=== PATIENT | male | born 1975 | race Caucasian/White ===

== ENCOUNTER 2017-04-12 16:49 | Emergency (ER) | payer BC ==
[2017-04-12 16:57] VITALS: BP 130/76
--- NOTE | 2017-04-12 17:27 | UC ---
Ear Complaint HPI - HPI Summary HPI Summary: Patient presents with complaints of plugged ears, with history of cerumen impaction, and often times requires ear irrigation. He presents today with those complaints. He denies any fever, chills, ear canal drainage. He does report decreased hearing - History of Current Complaint Chief Complaint: UCEar Stated Complaint: EARS CLOGGED Time Seen by Provider: 04/12/17 17:12 Hx Obtained From: Patient Onset/Duration: Gradual Onset, Lasting Days Severity Initially: Mild Severity Currently: Mild Aggravating Factors: Nothing Alleviating Factors: Nothing Associated Signs/Symptoms: Positive: Hearing Loss - Allergies/Home Medications Allergies/Adverse Reactions: Allergies Allergy/AdvReac Type Severity Reaction Status Date / Time Cefaclor [From Ceclor] Allergy Intermediate Hives Verified 04/12/17 16:57 Penicillins Allergy Intermediate Hives Verified 04/12/17 16:57 Sulfa Antibiotics Allergy Intermediate Hives Verified 04/12/17 16:57 Sulfamethoxazole Allergy Intermediate Hives Verified 04/12/17 16:57 w/Trimethoprim [From Bactrim] Home Medications: Home Medications Miles-3 Fatty Acids [Fish Oil 1200 mg] 1 cap PO DAILY 04/12/17 [History Confirmed 04/12/17] PMH/Surg Hx/FS Hx/Imm Hx Previously Healthy: Yes - Surgical History Surgical History: Yes Surgery Procedure, Year, and Place: Middle finger left hand surgery. colonoscopy. wisdom teeeth removed,pre cancerous mole removal - Family History Known Family History: Positive: None, Renal Disease Negative: Cardiac Disease, Hypertension Family History: NON CONTRIBUTORY - Social History Occupation: Employed Full-time Lives: Alone Alcohol Use: Occasionally Substance Use Type: None Smoking Status (MU): Never Smoked Tobacco Review of Systems Constitutional: Negative Skin: Negative Eyes: Negative ENT: Negative Respiratory: Negative Cardiovascular: Negative Gastrointestinal: Negative Genitourinary: Negative Motor: Negative Neurovascular: Negative Musculoskeletal: Negative Neurological: Negative Psychological: Negative All Other Systems Reviewed And Are Negative: Yes Physical Exam Triage Information Reviewed: Yes Vital Signs: Initial Vital Signs Temp 97.6 F 04/12/17 16:52 Pulse 60 04/12/17 16:52 Resp 20 04/12/17 16:52 BP 130/76 04/12/17 16:52 Pulse Ox 100 04/12/17 16:52 Eye Exam: Normal ENT Exam: Other - bilateral cerumen noted in canals. Dental Exam: Normal Neck exam: Normal Neck: Positive: 1 Respiratory Exam: Normal Cardiovascular Exam: Normal Abdominal Exam: Normal Musculoskeletal Exam: Normal Skin Exam: Normal Ear Complaint Course/Dx - Course Course Of Treatment: Patient presents with history of cerumen impaction. The ears were irrigated without incidence and the patient discharge in stable conditiosn. - Differential Dx/Diagnosis Differential Diagnosis/HQI/PQRI: Cerumen Impaction Provider Diagnoses: cerumen impaction Discharge - Discharge Plan Condition: Stable Disposition: HOME Patient Education Materials: Cerumen Impaction (ED) Referrals: Chente Medina MD [Primary Care Provider] -
== END 2017-04-12 17:37 | disposition home or self-care (01) ==
LOC: UCEAST 16:49
DX: H61.20 Impacted cerumen, unspecified ear (principal); Z88.0 Allergy status to penicillin; Z88.2 Allergy status to sulfonamides
CPT/HCPCS: 99213; G0463

== ENCOUNTER 2017-04-22 21:52 | Emergency (ER) | payer BC ==
--- NOTE | 2017-04-22 21:56 | UC ---
Skin Complaint HPI - HPI Summary HPI Summary: 42 year old male presents with right external hemorrhoid at 3 pm. - History of Current Complaint Time Seen by Provider: 04/22/17 21:55 Stated Complaint: LUMP IN RECTUM Hx Obtained From: Patient Onset/Duration: Sudden Onset Onset Severity: Moderate Current Severity: Moderate Pain Scale Used: 0-10 Numeric - 0 - Allergy/Home Medications Allergies/Adverse Reactions: Allergies Allergy/AdvReac Type Severity Reaction Status Date / Time Cefaclor [From Ceclor] Allergy Intermediate Hives Verified 04/22/17 21:58 Penicillins Allergy Intermediate Hives Verified 04/22/17 21:58 Sulfa Antibiotics Allergy Intermediate Hives Verified 04/22/17 21:58 Sulfamethoxazole Allergy Intermediate Hives Verified 04/22/17 21:58 w/Trimethoprim [From Bactrim] Review of Systems Constitutional: Negative Skin: Negative Eyes: Negative ENT: Negative Respiratory: Negative Cardiovascular: Negative Gastrointestinal: Other - right external hemorrhoid Genitourinary: Negative Motor: Negative Neurovascular: Negative Musculoskeletal: Negative Neurological: Negative Psychological: Negative All Other Systems Reviewed And Are Negative: Yes PMH/Surg Hx/FS Hx/Imm Hx Previously Healthy: Yes - Surgical History Surgical History: Yes Surgery Procedure, Year, and Place: Middle finger left hand surgery. colonoscopy. wisdom teeeth removed,pre cancerous mole removal - Family History Known Family History: Positive: None, Renal Disease Negative: Cardiac Disease, Hypertension Family History: NON CONTRIBUTORY - Social History Alcohol Use: Occasionally Substance Use Type: None Smoking Status (MU): Never Smoked Tobacco Physical Exam Triage Information Reviewed: Yes Vital Signs Reviewed: Yes Eye Exam: Normal ENT Exam: Normal Dental Exam: Normal Neck exam: Normal Neck: Positive: 1 Respiratory Exam: Normal Cardiovascular Exam: Normal Abdomen Description: Positive: Other: - right external hemorrhoid at 3 pm Musculoskeletal Exam: Normal Neurological Exam: Normal Psychological Exam: Normal Skin Exam: Normal Course/Dx - Diagnoses Provider Diagnoses: external hemorrhoid Discharge - Discharge Plan Condition: Stable Disposition: HOME Prescriptions: Hydrocortisone Acetate W/ Pram [Analpram Hc 2.5-1 %] 1 cre MI TID PRN #1 tube PRN Reason: Pain Hydrocortisone SUPP* [Anusol HC Supp*] 25 mg MI TID PRN #12 supp PRN Reason: Pain Patient Education Materials: Hemorrhoids (ED) Referrals: Mateusz Nugent MD [Medical Doctor] - Chente Medina MD [Primary Care Provider] -
[2017-04-22 21:58] VITALS: BP 132/79
== END 2017-04-22 22:24 | disposition home or self-care (01) ==
LOC: UCEAST 21:52
DX: K64.4 Residual hemorrhoidal skin tags (principal); Z88.1 Allergy status to other antibiotic agents; Z88.0 Allergy status to penicillin; Z88.2 Allergy status to sulfonamides
CPT/HCPCS: 99212; G0463

== ENCOUNTER 2017-08-29 19:14 | Emergency (ER) | payer BC ==
--- NOTE | 2017-08-29 19:19 | UC ---
Throat Pain/Nasal Nhan HPI - HPI Summary HPI Summary: Pt presents with sinus pain/pressure/congestion for the last 3 weeks. He tells me that he has chronic sinusitis and is followed by ENT for this. He was seen by ENT for this same issue 1 week ago and was told that it could be viral and he should give it more time to see if his symptoms improve. He says that have not improved. Denies fever, chills, SOB, chest pain, abdominal pain, n/v/d/c. - History of Current Complaint Stated Complaint: SINUS CONGESTION Time Seen by Provider: 08/29/17 19:19 Hx Obtained From: Patient Onset/Duration: Gradual Onset Severity: Mild Pain Intensity: 3 Pain Scale Used: 0-10 Numeric - Allergies/Home Medications Allergies/Adverse Reactions: Allergies Allergy/AdvReac Type Severity Reaction Status Date / Time cefaclor [From Ceclor] Allergy Severe Hives Verified 08/29/17 19:24 Penicillins Allergy Severe Hives Verified 08/29/17 19:24 Sulfa (Sulfonamide Allergy Severe Hives Verified 08/29/17 19:24 Antibiotics) sulfamethoxazole Allergy Severe Hives Verified 08/29/17 19:24 [From Bactrim] trimethoprim [From Bactrim] Allergy Severe Hives Verified 08/29/17 19:24 Home Medications: Home Medications [place] 08/29/17 [History] Quercitin* 08/29/17 [History] PMH/Surg Hx/FS Hx/Imm Hx - Additional Past Medical History Additional PMH: Chronic sinusitis Cardiovascular History: Hypertension - Surgical History Surgical History: Yes Surgery Procedure, Year, and Place: Middle finger left hand surgery. colonoscopy. wisdom teeeth removed,pre cancerous mole removal - Family History Known Family History: Positive: None, Renal Disease Negative: Cardiac Disease, Hypertension - Social History Occupation: Employed Full-time Lives: With Family Alcohol Use: Occasionally Substance Use Type: None Smoking Status (MU): Never Smoked Tobacco Review of Systems Constitutional: Negative Skin: Negative Eyes: Negative ENT: Sinus Congestion, Sinus Pain/Tenderness Respiratory: Negative Cardiovascular: Negative All Other Systems Reviewed And Are Negative: Yes Physical Exam Triage Information Reviewed: Yes Appearance: Well-Appearing, No Pain Distress, Well-Nourished Eyes: Positive: Conjunctiva Clear. Negative: Conjunctiva Inflamed, Discharge ENT: Positive: Hearing grossly normal, Pharynx normal, Nasal congestion, TMs normal, Sinus tenderness, Uvula midline. Negative: Pharyngeal erythema, Nasal drainage, TM bulging, TM dull, TM red, Tonsillar swelling, Tonsillar exudate, Hoarse voice Neck: Positive: Supple, Nontender, No Lymphadenopathy Respiratory: Positive: Lungs clear, Normal breath sounds, No respiratory distress, No accessory muscle use Cardiovascular: Positive: RRR, No Murmur, Pulses Normal Neurological: Positive: Alert Psychological: Positive: Age Appropriate Behavior Skin: Negative: rashes Throat Pain/Nasal Course/Dx - Course Course Of Treatment: Sinusitis - Zpak. Advised to schedule f/u with ENT for 1-2 weeks for further eval of his chronic sinusitis - Differential Dx/Diagnosis Provider Diagnoses: Sinusitis Discharge - Discharge Plan Condition: Stable Disposition: HOME Prescriptions: Azithromycin TAB* [Zithromax TAB (Z-SEVERO) 250 mg #6 tabs] 2 tab PO .TODAY, THEN 1 DAILY #1 severo Patient Education Materials: Sinusitis (ED) Referrals: Chente Medina MD [Primary Care Provider] - Additional Instructions: If you develop a fever, shortness of breath, chest pain, new or worsening symptoms - please call your PCP or go to the ED. Your blood pressure was high at todays visit. Please see your primary provider within 4 weeks for recheck and re-evaluation. 1) Please schedule a follow up appointment with ENT for further evaluation and treatment of your chronic sinusitis.
[2017-08-29 19:22] VITALS: BP 141/91
== END 2017-08-29 19:40 | disposition home or self-care (01) ==
LOC: UCEAST 19:14
DX: J32.9 Chronic sinusitis, unspecified (principal); I10 Essential (primary) hypertension; Z88.1 Allergy status to other antibiotic agents; Z88.0 Allergy status to penicillin; Z88.2 Allergy status to sulfonamides
CPT/HCPCS: 99212; G0463

== ENCOUNTER 2018-04-01 11:28 | Emergency (ER) | payer BC ==
[2018-04-01 12:29] VITALS: BP 130/86
--- NOTE | 2018-04-01 12:32 | UC ---
Complaint Male HPI - HPI Summary HPI Summary: 43 yo male presents with groin pain and blood-tinged semen. He noticed this once 5 days ago while masturbating and again 2 days ago. The amount of semen is able a teaspoon or tablespoon and has tinges of dark red blood. He tells me that he has had this in the past and was dx'd with prostatitis. He also has polycystic kidney dz and has annual ultrasounds - had one about a month ago and was told he had a ?cyst around his prostate. He made an appt with Urology and is seeing them the end of this month for follow up. He also has some mild groin discomfort that he describes as an ache. He has had intercourse with a female twice in the last 3 weeks, but he wore a condom both times. He has not noticed any blood in his urine nor does he have pain with urination. Denies fever, chills, SOB, chest pain, abdominal pain, n/v/d/c, dysuria, hematuria, testicular pain/trauma. - History of Current Complaint Chief Complaint: UCGU Stated Complaint: PERSONAL Time Seen by Provider: 04/01/18 12:32 Hx Obtained From: Patient Onset/Duration: Sudden Onset Severity Currently: None Pain Intensity: 0 - Allergies/Home Medications Allergies/Adverse Reactions: Allergies Allergy/AdvReac Type Severity Reaction Status Date / Time cefaclor [From Ceclor] Allergy Severe Hives Verified 04/01/18 12:18 Penicillins Allergy Severe Hives Verified 04/01/18 12:18 Sulfa (Sulfonamide Allergy Severe Hives Verified 04/01/18 12:18 Antibiotics) sulfamethoxazole Allergy Severe Hives Verified 04/01/18 12:18 [From Bactrim] trimethoprim [From Bactrim] Allergy Severe Hives Verified 04/01/18 12:18 Home Medications: Home Medications Fluocinonide 0.05% CM (NF) [Lidex 0.05% CREAM (NF)] 0.05 04/01/18 [History] Hydrocortisone 2.5% CREAM(NF) 04/01/18 [History] Montelukast Sodium 10 mg PO BEDTIME 04/01/18 [History Confirmed 04/01/18] Triamcinolone 0.1% CREAM (NF) [Kenalog 0.1% Cream (NF)] 1 applic DAILY 04/01/18 [History Confirmed 04/01/18] PMH/Surg Hx/FS Hx/Imm Hx - Additional Past Medical History Additional PMH: Eczema Cardiovascular History: Hypertension Respiratory History: Asthma - Surgical History Surgical History: Yes Surgery Procedure, Year, and Place: Middle finger left hand surgery. colonoscopy. wisdom teeth removed,. pre cancerous mole removal - Family History Known Family History: Positive: Renal Disease Negative: Cardiac Disease, Hypertension - Social History Occupation: Employed Full-time Lives: With Family Alcohol Use: Occasionally Substance Use Type: None Smoking Status (MU): Never Smoked Tobacco Review of Systems Constitutional: Negative Skin: Negative Respiratory: Negative Cardiovascular: Negative Gastrointestinal: Negative Genitourinary: Other - Blood in semen Neurological: Negative Psychological: Negative All Other Systems Reviewed And Are Negative: Yes Physical Exam - Summary Physical Exam Summary: GENERAL: NAD. WDWN. No pain distress. SKIN: No rashes, sores, lesions, or open wounds. NECK: Supple. Nontender. No lymphadenopathy. CHEST: CTAB. No r/r/w. No accessory muscle use. Breathing comfortably and in no distress. CV: RRR. Without m/r/g. Pulses intact. Cap refill <2seconds ABDOMEN: Soft. NTTP. No distention or guarding. No CVA tenderness. Bowel sounds present NEURO: Alert. PSYCH: Age appropriate behavior. Triage Information Reviewed: Yes Vital Signs: Initial Vital Signs Temp 97.8 F 04/01/18 12:24 Pulse 71 04/01/18 12:24 Resp 20 04/01/18 12:24 BP 130/86 04/01/18 12:24 Pulse Ox 100 04/01/18 12:24 Laboratory Tests 04/01/18 12:43 POC Urine Color Yellow POC Urine Clarity Clear POC Urine pH 7.0 POC Ur Specif [place] 1.010 POC Urine Protein Negative POC Ur Glucose (UA) Negative POC Urine Ketones Negative POC Urine Blood Negative POC Urine Nitrite Negative POC Urine Bilirubin Negative POC Urine Urobilinogen 0.2 POC U Leukocyte Esteras Negative Vital Signs Reviewed: Yes Male Genital Exam: Positive: Other - No inguinal LAD. Prostate mildly enlarged without tenderness. Right testicle with 1mm hard nodule around 1 o'clock NTTP. No enlargement. Left testicle WNL and NTTP. No stool in vault or hemorrhoid appreciated.. Negative: No Hernia, Bleeding, Epididymal Tenderness, Inguinal Tenderness, Lesions, Scrotum Tenderness (R), Scrotum Tenderness (L), Testicular Tenderness (R), Testicular Tenderness (L), Urethral Discharge Complaint Male Course/Dx - Course Course Of Treatment: Suspect prostatitis vs underlying prostate pathology. Discussed obtaining a testicular ultrasound today to evaluate the right testicle nodule - he has never noticed this in the past - but he said that he was "aready running behind schedule" today and did not have time. I will send his urine for GC/C and treat him with Cipro for prostatitis. Strongly encouraged to call Urology and see if they can see him sooner than later this month. - Differential Dx/Diagnosis Provider Diagnoses: Prostatitis. Right testicle nodule. hematospermia Discharge - Sign-Out/Discharge Documenting (check all that apply): Patient Departure All imaging exams completed and their final reports reviewed: No Studies - Discharge Plan Condition: Stable Disposition: HOME Prescriptions: Ciprofloxacin TAB* [Cipro 500 MG TAB*] 500 mg PO BID #28 tab Patient Education Materials: Prostatitis (ED) Referrals: Chente Medina MD [Primary Care Provider] - Additional Instructions: If you develop a fever, shortness of breath, chest pain, new or worsening symptoms - please call your PCP or go to the ED. Your blood pressure was mildly elevated at todays visit. Please see your primary provider within 4 weeks for recheck and re-evaluation. 1) Please keep your follow up with Urology - Billing Disposition and Condition Condition: STABLE Disposition: Home
== END 2018-04-01 13:36 | disposition home or self-care (01) ==
LOC: UCEAST 11:28
DX: N41.9 Inflammatory disease of prostate, unspecified (principal); N50.9 Disorder of male genital organs, unspecified; R36.1 Hematospermia; I10 Essential (primary) hypertension; J45.909 Unspecified asthma, uncomplicated; Z88.1 Allergy status to other antibiotic agents; Z88.0 Allergy status to penicillin; Z88.2 Allergy status to sulfonamides
CPT/HCPCS: 81003; 87491; 87591; 99212; G0463

== ENCOUNTER 2018-05-17 19:51 | Emergency (ER) | payer BC ==
[2018-05-17 20:00] VITALS: BP 148/99
--- NOTE | 2018-05-17 20:14 | UC ---
Ear Complaint HPI - HPI Summary HPI Summary: left ear decrease hearing and pain - History of Current Complaint Chief Complaint: UCEar Stated Complaint: EAR PAIN Time Seen by Provider: 05/17/18 20:07 Hx Obtained From: Patient Onset/Duration: Gradual Onset Pain Intensity: 3 Pain Scale Used: 0-10 Numeric Aggravating Factors: Nothing Alleviating Factors: Nothing Associated Signs/Symptoms: Positive: Hearing Loss - Allergies/Home Medications Allergies/Adverse Reactions: Allergies Allergy/AdvReac Type Severity Reaction Status Date / Time cefaclor [From Ceclor] Allergy Severe Hives Verified 05/17/18 20:00 Penicillins Allergy Severe Hives Verified 05/17/18 20:00 Sulfa (Sulfonamide Allergy Severe Hives Verified 05/17/18 20:00 Antibiotics) sulfamethoxazole Allergy Severe Hives Verified 05/17/18 20:00 [From Bactrim] trimethoprim [From Bactrim] Allergy Severe Hives Verified 05/17/18 20:00 Home Medications: Home Medications Acetaminophen [Acetaminophen Extra Strength] 500 mg PO PRN 05/17/18 [History] PMH/Surg Hx/FS Hx/Imm Hx Previously Healthy: No Cardiovascular History: Hypertension - Surgical History Surgical History: Yes Surgery Procedure, Year, and Place: Middle finger left hand surgery. colonoscopy. wisdom teeth removed,. pre cancerous mole removal - Family History Known Family History: Positive: None, Renal Disease Negative: Cardiac Disease, Hypertension Family History: NON CONTRIBUTORY - Social History Occupation: Employed Full-time Lives: With Family Alcohol Use: Occasionally Substance Use Type: None Smoking Status (MU): Never Smoked Tobacco Review of Systems All Other Systems Reviewed And Are Negative: Yes Constitutional: Positive: Negative Skin: Positive: Negative Eyes: Positive: Negative ENT: Positive: Negative Respiratory: Positive: Negative Cardiovascular: Positive: Negative Gastrointestinal: Positive: Negative Genitourinary: Positive: Negative Motor: Positive: Negative Neurovascular: Positive: Negative Musculoskeletal: Positive: Negative Neurological: Positive: Negative Psychological: Positive: Negative Physical Exam Triage Information Reviewed: Yes Appearance: Well-Appearing, No Pain Distress, Well-Nourished Vital Signs: Initial Vital Signs Temp 96.7 F 05/17/18 19:56 Pulse 71 05/17/18 19:56 Resp 16 05/17/18 19:56 BP 148/99 05/17/18 19:56 Pulse Ox 100 05/17/18 19:56 Vital Signs Reviewed: Yes Eye Exam: Normal Eyes: Positive: Conjunctiva Clear ENT Exam: Normal ENT: Positive: Normal ENT inspection, Hearing grossly normal, Pharynx normal, Uvula midline, Other - bilateral cerumin impaction. Negative: Tonsillar swelling, Tonsillar exudate, Trismus, Muffled voice, Hoarse voice, Dental tenderness, Sinus tenderness Dental Exam: Normal Neck exam: Normal Neck: Positive: Supple, Nontender Respiratory Exam: Normal Respiratory: Positive: Chest non-tender, No respiratory distress, No accessory muscle use Cardiovascular Exam: Normal Cardiovascular: Positive: RRR, Pulses Normal, Brisk Capillary Refill Musculoskeletal Exam: Normal Musculoskeletal: Positive: Strength Intact, ROM Intact, No Edema Neurological Exam: Normal Neurological: Positive: Alert, Muscle Tone Normal Psychological Exam: Normal Skin Exam: Normal Re-Evaluation - Re-Evaluation First Eval Change: Improved - ears flushed--patient reports relief of discomfort increased hearing --tm appear wnl Ear Complaint Course/Dx - Course Course Of Treatment: follow blood pressure with pcp re-check prn - Differential Dx/Diagnosis Differential Diagnosis/HQI/PQRI: Foreign Body Provider Diagnoses: hypertension in poor control, resolved bilateral cerumen impaction Discharge - Sign-Out/Discharge Documenting (check all that apply): Patient Departure All imaging exams completed and their final reports reviewed: No Studies - Discharge Plan Condition: Stable Disposition: HOME Patient Education Materials: Cerumen Impaction (ED), Hypertension (ED) Referrals: Chente Medina MD [Primary Care Provider] - 1 Week - Billing Disposition and Condition Condition: STABLE Disposition: Home
== END 2018-05-17 21:00 | disposition home or self-care (01) ==
LOC: UCEAST 19:51
DX: I10 Essential (primary) hypertension (principal); H92.02 Otalgia, left ear; Z88.1 Allergy status to other antibiotic agents; Z88.0 Allergy status to penicillin; Z88.2 Allergy status to sulfonamides
CPT/HCPCS: 99213; G0463

== ENCOUNTER 2018-08-01 17:18 | Emergency (ER) | payer BC ==
[2018-08-01 17:35] VITALS: BP 136/78
--- NOTE | 2018-08-01 17:37 | UC ---
Nausea/Vomiting/Diarrhea HPI - HPI Summary HPI Summary: 43 y/o male presents to the urgent care c/o watery diarrhea since yesterday morning. Pt states he has about 8 episodes of diarrhea yesterday and about 7 today. Pt states abdominal cramping pain 4/10 alleviated w/ BM. Pt has been drinking Gatorade and fluids and eating soft meals. Today he decided to take Peptobismol PO to alleviate symptoms. Pt denies fever, URI, SANTOS, dizziness, SOB, chest pain, N/V. - History of Current Complaint Chief Complaint: UCGI Stated Complaint: STOMACH BUG Time Seen by Provider: 08/01/18 17:36 Hx Obtained From: Patient Onset/Duration: Gradual Onset Timing: Intermittent Episodes Lasting: Severity Initially: Mild Pain Intensity: 4 - crampin gabdominal pain Pain Scale Used: 0-10 Numeric Location: Diffuse Character: Cramping Aggravating Factor(s): Food Alleviating Factor(s): Bowel Movement Nausea/Vomiting Presence: None Diarrhea Presence: Yes Diarrhea Frequency: Every 3-4 hours Diarrhea Duration: 12-24 hours Diarrhea Characteristics: Watery - Risk Factors Influenza Risk Factors: Negative Surgical Obstruction Risk Factor(s): Negative - Allergies/Home Medications Allergies/Adverse Reactions: Allergies Allergy/AdvReac Type Severity Reaction Status Date / Time cefaclor [From Ceclor] Allergy Severe Hives Verified 08/01/18 17:36 Penicillins Allergy Severe Hives Verified 08/01/18 17:36 Sulfa (Sulfonamide Allergy Severe Hives Verified 08/01/18 17:36 Antibiotics) sulfamethoxazole Allergy Severe Hives Verified 08/01/18 17:36 [From Bactrim] trimethoprim [From Bactrim] Allergy Severe Hives Verified 08/01/18 17:36 Home Medications: Home Medications Bismuth Subsalicylate [Pepto-Bismol] 60 ml PO Q1HR PRN 08/01/18 [History Confirmed 08/01/18] PMH/Surg Hx/FS Hx/Imm Hx Previously Healthy: Yes Cardiovascular History: Hypertension Other GI/ History: PKD - Surgical History Surgical History: Yes Surgery Procedure, Year, and Place: Middle finger left hand surgery;. colonoscopy-NO POLYPS;. wisdom teeth removed;. pre cancerous mole removal; - Family History Known Family History: Positive: None, Renal Disease Negative: Cardiac Disease, Hypertension Family History: NON CONTRIBUTORY - Social History Occupation: Employed Full-time Lives: With Family Alcohol Use: Occasionally Substance Use Type: None Smoking Status (MU): Never Smoked Tobacco Review of Systems All Other Systems Reviewed And Are Negative: Yes Constitutional: Positive: Negative Skin: Positive: Negative Eyes: Positive: Negative ENT: Positive: Negative Respiratory: Positive: Negative Cardiovascular: Positive: Negative Gastrointestinal: Positive: Abdominal Pain, Diarrhea Genitourinary: Positive: Negative Motor: Positive: Negative Neurovascular: Positive: Negative Musculoskeletal: Positive: Negative Neurological: Positive: Negative Psychological: Positive: Negative Is Patient Immunocompromised?: No Physical Exam - Summary Physical Exam Summary: Vital Signs Reviewed: Yes General:Patient is a well developed and nourished male who is sitting comfortable in the examining table. Patient is not in any acute respiratory distress. Eyes: Positive: Conjunctiva Clear - PERRLA, EOMI, fundi grossly normal ENT: Positive: Normal ENT inspection, Hearing grossly normal, Pharynx normal, TMs normal Neck: Positive: Supple, Nontender, No Lymphadenopathy Respiratory: Positive: Chest non-tender, Lungs clear, Normal breath sounds, No respiratory distress Cardiovascular: Positive: RRR,S1 and S2 present, No Murmur, Pulses Normal, Brisk Capillary Refill Abdomen Description: Positive: Nontender, Abd: Flat with no distention. No surface trauma, scars, incisions. hyperactive bowel sounds present in all four quadrants. No tenderness, guarding, rigidity to palpation. No masses palpated, no pulsation in epigastric area. No organomegaly. Negative [place] signs. No periumbilical tenderness. No rebound in the lower quadrants. NT over [place] point. Good femoral pulses bilaterally. No hernia noted. No CVAT bilaterally Musculoskeletal: Positive: Strength Intact, ROM Intact, No Edema,FROM in all major joints, no edema, no cyanosis or clubbing. Neuro: Alert and oriented x 3. No acute neurological deficits. Speech is normal. Psychological: WNL Skin: Dry and warm Triage Information Reviewed: Yes Vital Signs: Initial Vital Signs Temp 99 F 08/01/18 17:29 Pulse 82 08/01/18 17:29 Resp 16 08/01/18 17:29 BP 136/78 08/01/18 17:29 Pulse Ox 98 08/01/18 17:29 Naus/Vom/Diarrhea Course/Dx - Course Course Of Treatment: 43 y/o male presents to the urgent care c/o watery diarrhea since yesterday morning. Pt states he has about 8 episodes of diarrhea yesterday and about 7 today. Pt states abdominal cramping pain 4/10 alleviated w/ BM. Pt has been drinking Gatorade and fluids and eating soft meals. Today he decided to take Peptobismol PO to alleviate symptoms. Pt denies fever, URI, SANTOS, dizziness, SOB, chest pain, N/V. Hx obtained. PE:WNL. Pt is hemodynamically stable. Pt unable to collect stool for testing at the clinic. Pt advised to bring back the stool, educated in how to do it. Stool culture ordered, O&P, Lactoferrin. E.Coli also ordered. Pt will be notify of the results for further treatment. Pt Rx ImodiumPO and Metronidazole PO only to take if diarrhea worsens. Advised to increase fluid intake, eat soft meals, and rest. If Symptoms worsen to go immediately to the ER for further management. Otherwise f /u with PCP if not complete resolution of symptoms for further management. Pt understood and agreed with plan of care. Left the clinic ambulating, hemodynamically stable, A&Ox3 - Differential Dx/Diagnosis Differential Diagnoses - Male: Appendicitis, Diverticulitis, Gastroenteritis ( Viral), Gastroenteritis (Bacterial), Diarrhea, Colitis, Dehydration Provider Diagnosis: Acute diarrhea Condition At Discharge: Stable Discharge - Sign-Out/Discharge Documenting (check all that apply): Patient Departure - d/c home All imaging exams completed and their final reports reviewed: No Studies - Discharge Plan Condition: Stable Disposition: HOME Prescriptions: Loperamide CAP* [Imodium CAP*] 2 mg PO Q4H PRN #12 cap PRN Reason: Diarrhea metroNIDAZOLE TAB* [Flagyl 250 mg TAB*] 250 mg PO TID #21 tab Patient Education Materials: Acute Diarrhea (ED) Forms: *Work Release Referrals: Chente Medina MD [Primary Care Provider] - 3 Days Additional Instructions: 1- Please increase fluid intake. Please continue taking Gatorade or Pedialyte OTC , eat soft meals, avoid strenuous exercise, and rest. 2-Please bring Stool sample as soon as is collected to send it to the lab for further evaluation 3- Please start taking Imodium PO and Metronidazole PO as directed only if diarrhea continues to be severe. 4- If you develop fever or abdominal pain w/ recurrent episodes of diarrhea please go to the ER, otherwise f/u with your PCP if diarrhea not resolving in 3 days - Billing Disposition and Condition Condition: STABLE Disposition: Home
--- NOTE | 2018-08-04 19:30 | UC ---
- Progress Note Progress Note: E. Coli 0157H7 neg shiga neg C dif neg neg giardia/crypto neg rotavirus + staph: prelim no change in treatment - await final 08/04/18 Course/Dx - Diagnoses Provider Diagnoses: Acute diarrhea Discharge - Sign-Out/Discharge Documenting (check all that apply): Post-Discharge Follow Up All imaging exams completed and their final reports reviewed: No Studies - Discharge Plan Condition: Stable Disposition: HOME Prescriptions: Loperamide CAP* [Imodium CAP*] 2 mg PO Q4H PRN #12 cap PRN Reason: Diarrhea metroNIDAZOLE TAB* [Flagyl 250 mg TAB*] 250 mg PO TID #21 tab Patient Education Materials: Acute Diarrhea (ED) Forms: *Work Release Referrals: Chente Medina MD [Primary Care Provider] - 3 Days Additional Instructions: 1- Please increase fluid intake. Please continue taking Gatorade or Pedialyte OTC , eat soft meals, avoid strenuous exercise, and rest. 2-Please bring Stool sample as soon as is collected to send it to the lab for further evaluation 3- Please start taking Imodium PO and Metronidazole PO as directed only if diarrhea continues to be severe. 4- If you develop fever or abdominal pain w/ recurrent episodes of diarrhea please go to the ER, otherwise f/u with your PCP if diarrhea not resolving in 3 days - Billing Disposition and Condition Condition: STABLE Disposition: Home
== END 2018-08-01 18:50 | disposition home or self-care (01) ==
LOC: UCEAST 17:18
DX: R19.7 Diarrhea, unspecified (principal); Z88.1 Allergy status to other antibiotic agents; Z88.0 Allergy status to penicillin; Z88.2 Allergy status to sulfonamides
CPT/HCPCS: 99212; G0463

== ENCOUNTER 2018-08-20 17:26 | Emergency (ER) | payer BC ==
[2018-08-20 17:37] VITALS: BP 121/77
[2018-08-20 18:04] LABS: Influenza A Molecular POSITIVE (Negative)
--- NOTE | 2018-08-20 18:47 | UC ---
FLU HPI - HPI Summary HPI Summary: Pt presents with c/o sudden onset of fever, chills, body aches and generalized malaise, X 2 days. - History of Current Complaint Chief Complaint: UCRespiratory Stated Complaint: COUGH, CHILLS, AND SORE THROAT Time Seen by Provider: 08/20/18 17:33 Hx Obtained From: Patient Onset/Duration: Sudden Onset, Lasting Days, Still Present Severity Currently: Moderate Severity Initially: Moderate Pain Intensity: 0 Pain Scale Used: 0-10 Numeric Associated Signs & Symptoms: Positive: Fever, Myalgia, Nasal Congestion Related Hx: Possible Flu/Infectious Exposure - Risk Factors Influenza Risk Factors: Negative - Allergy/Home Medications Allergies/Adverse Reactions: Allergies Allergy/AdvReac Type Severity Reaction Status Date / Time cefaclor [From Ceclor] Allergy Severe Hives Verified 08/20/18 17:38 Penicillins Allergy Severe Hives Verified 08/20/18 17:38 Sulfa (Sulfonamide Allergy Severe Hives Verified 08/20/18 17:38 Antibiotics) sulfamethoxazole Allergy Severe Hives Verified 08/20/18 17:38 [From Bactrim] trimethoprim [From Bactrim] Allergy Severe Hives Verified 08/20/18 17:38 PMH/Surg Hx/FS Hx/Imm Hx Previously Healthy: Yes - Surgical History Surgical History: Yes Surgery Procedure, Year, and Place: Middle finger left hand surgery;. colonoscopy-NO POLYPS;. wisdom teeth removed;. pre cancerous mole removal; - Family History Known Family History: Positive: None, Renal Disease Negative: Cardiac Disease, Hypertension Family History: NON CONTRIBUTORY - Social History Occupation: Employed Full-time Lives: Alone Alcohol Use: Occasionally Substance Use Type: None Smoking Status (MU): Never Smoked Tobacco Have You Smoked in the Last Year: No Review of Systems All Other Systems Reviewed And Are Negative: Yes Constitutional: Positive: Fever, Chills, Fatigue Skin: Positive: Negative Eyes: Positive: Negative ENT: Positive: Sinus Congestion Respiratory: Positive: Cough Cardiovascular: Positive: Negative, Palpitations Genitourinary: Positive: Negative Motor: Positive: Negative Neurovascular: Positive: Negative Musculoskeletal: Positive: Myalgia Neurological: Positive: Negative Psychological: Positive: Negative Is Patient Immunocompromised?: No Physical Exam Triage Information Reviewed: Yes Appearance: Ill-Appearing Vital Signs: Initial Vital Signs Temp 98.9 F 08/20/18 17:31 Pulse 70 08/20/18 17:31 Resp 16 08/20/18 17:31 BP 121/77 08/20/18 17:31 Pulse Ox 99 08/20/18 17:31 Vital Signs Reviewed: Yes Eye Exam: Normal ENT: Positive: Nasal congestion Dental Exam: Normal Neck exam: Normal Respiratory Exam: Normal Respiratory: Positive: Normal breath sounds Cardiovascular Exam: Normal Musculoskeletal Exam: Normal Neurological Exam: Normal Psychological Exam: Normal Skin Exam: Normal Flu Course/Dx - Differential Dx/Diagnosis Differential Diagnosis/HQI/PQRI: Bronchitis, Influenza Provider Diagnosis: Influenza A Discharge - Sign-Out/Discharge Documenting (check all that apply): Patient Departure All imaging exams completed and their final reports reviewed: No Studies - Discharge Plan Condition: Stable Disposition: HOME Prescriptions: Oseltamivir CAP* [Tamiflu CAP*] 75 mg PO Q12H #10 cap Patient Education Materials: Influenza (ED) Forms: *Work Release Referrals: Chente Medina MD [Primary Care Provider] - If Needed - Billing Disposition and Condition Condition: STABLE Disposition: Home
== END 2018-08-20 18:30 | disposition home or self-care (01) ==
LOC: UCEAST 17:26
DX: J10.1 Influenza due to other identified influenza virus with other respiratory manifestations (principal); Z88.2 Allergy status to sulfonamides; Z88.0 Allergy status to penicillin; Z88.1 Allergy status to other antibiotic agents
CPT/HCPCS: 99212; G0463

== ENCOUNTER 2018-10-02 10:03 | Emergency (ER) | payer BC ==
--- NOTE | 2018-10-02 10:10 | UC ---
Skin Complaint HPI - HPI Summary HPI Summary: 43 yo male presents with RIGHT big toe complaint. He tells me that 1 week ago he got a pedicure and the tech was "digging out" an ingrown toenail on his big toe. The next day on the medial aspect of the big toe nail-skin fold he began to have pain, swelling, and mild clear/yellow drainage. He has been applying triple antibiotic ointment and a band-aid daily since that time and it has improved, but he is still having some pain with walking. Denies fever, chills, streaking redness. - History of Current Complaint Time Seen by Provider: 10/02/18 10:08 Stated Complaint: SORE ON TOE Hx Obtained From: Patient Onset/Duration: Sudden Onset Onset Severity: Moderate Current Severity: Mild Pain Intensity: 5 Pain Scale Used: 0-10 Numeric - Allergy/Home Medications Allergies/Adverse Reactions: Allergies Allergy/AdvReac Type Severity Reaction Status Date / Time cefaclor [From Ceclor] Allergy Severe Hives Verified 10/02/18 10:14 Penicillins Allergy Severe Hives Verified 10/02/18 10:14 Sulfa (Sulfonamide Allergy Severe Hives Verified 10/02/18 10:14 Antibiotics) sulfamethoxazole Allergy Severe Hives Verified 10/02/18 10:14 [From Bactrim] trimethoprim [From Bactrim] Allergy Severe Hives Verified 10/02/18 10:14 PMH/Surg Hx/FS Hx/Imm Hx Cardiovascular History: Hypertension Respiratory History: Asthma - Surgical History Surgical History: Yes Surgery Procedure, Year, and Place: Middle finger left hand surgery;. colonoscopy-NO POLYPS;. wisdom teeth removed;. pre cancerous mole removal; - Family History Known Family History: Positive: Renal Disease Negative: Cardiac Disease, Hypertension - Social History Occupation: Employed Full-time Lives: With Family Alcohol Use: Occasionally Substance Use Type: None Smoking Status (MU): Never Smoked Tobacco Have You Smoked in the Last Year: No Review of Systems All Other Systems Reviewed And Are Negative: Yes Constitutional: Positive: Negative Skin: Positive: Other - Right big toe redness/pain Respiratory: Positive: Negative Cardiovascular: Positive: Negative Musculoskeletal: Positive: Negative Neurological: Positive: Negative Psychological: Positive: Negative Physical Exam - Summary Physical Exam Summary: GENERAL: NAD. WDWN. No pain distress. SKIN: RIGHT BIG TOE: Medial aspect of nail-skin fold with mild erythema and scant clear drainage. No edema, warmth, streaking, or fluctuant area appreciated. NECK: Supple. Nontender. No lymphadenopathy. CHEST: No accessory muscle use. Breathing comfortably and in no distress. CV: Pulses intact. Cap refill <2seconds NEURO: Alert. PSYCH: Age appropriate behavior. Triage Information Reviewed: Yes Vital Signs: Vital Signs: Temp Pulse Resp BP Pulse Ox 98.3 F 64 18 140/86 100 10/02/18 10:10/02/18 10:10/02/18 10:10/02/18 10:10/02/18 10:09 Vital Signs Reviewed: Yes Course/Dx - Course Course Of Treatment: Paronychia - appears to be healing well. Advised to continue triple anbx and band-aid until well healed. - Diagnoses Provider Diagnosis: Paronychia Discharge - Sign-Out/Discharge Documenting (check all that apply): Patient Departure All imaging exams completed and their final reports reviewed: No Studies - Discharge Plan Condition: Stable Disposition: HOME Patient Education Materials: Paronychia (ED) Referrals: Chente Medina MD [Primary Care Provider] - Additional Instructions: If you develop a fever, shortness of breath, chest pain, new or worsening symptoms - please call your PCP or go to the ED. 1) Keep applying triple antibiotic ointment and changing the dressing (band-aid ) daily until well healed - Billing Disposition and Condition Condition: STABLE Disposition: Home
[2018-10-02 10:14] VITALS: BP 140/86
[2018-10-02] MEDS: Tetan/Diph/Pertus SYR(Tdap)* 0.5 ML SYR(BOOSTRIX) use SYR IM ONE (10:33)
== END 2018-10-02 10:50 | disposition home or self-care (01) ==
LOC: UCEAST 10:03
DX: L03.031 Cellulitis of right toe (principal); Z88.0 Allergy status to penicillin; Z88.1 Allergy status to other antibiotic agents; Z88.2 Allergy status to sulfonamides; I10 Essential (primary) hypertension
CPT/HCPCS: 90471; 90715; 99211; G0010; G0463

== ENCOUNTER 2018-10-09 16:32 | Emergency (ER) | payer BC ==
[2018-10-09 16:51] VITALS: BP 124/71
--- NOTE | 2018-10-09 17:17 | UC ---
Lower Extremity/Ankle HPI - HPI Summary HPI Summary: 43 y/o male presents to the urgent care c/o C/O RIGHT GREAT TOE WOUND THAT PT WAS SEEN HERE FOR LAST WEEK. PT RETURNS TODAY BECAUSE WOUND IS STILL PAINFUL AND DRAINING. - History of Current Complaint Chief Complaint: UCWounds Stated Complaint: R BIG TOE COMPLAINT Time Seen by Provider: 10/09/18 17:11 Hx Obtained From: Patient Pain Intensity: 3 - Allergies/Home Medications Allergies/Adverse Reactions: Allergies Allergy/AdvReac Type Severity Reaction Status Date / Time cefaclor [From Ceclor] Allergy Severe Hives Verified 10/09/18 16:51 Penicillins Allergy Severe Hives Verified 10/09/18 16:51 Sulfa (Sulfonamide Allergy Severe Hives Verified 10/09/18 16:51 Antibiotics) sulfamethoxazole Allergy Severe Hives Verified 10/09/18 16:51 [From Bactrim] trimethoprim [From Bactrim] Allergy Severe Hives Verified 10/09/18 16:51 PMH/Surg Hx/FS Hx/Imm Hx - Surgical History Surgical History: Yes Surgery Procedure, Year, and Place: Middle finger left hand surgery;. colonoscopy-NO POLYPS;. wisdom teeth removed;. pre cancerous mole removal; - Family History Known Family History: Positive: Renal Disease Negative: Cardiac Disease, Hypertension - Social History Alcohol Use: None Substance Use Type: None Smoking Status (MU): Never Smoked Tobacco Have You Smoked in the Last Year: No Physical Exam Vital Signs: Initial Vital Signs Temp 97.2 F 10/09/18 16:48 Pulse 55 10/09/18 16:48 Resp 16 10/09/18 16:48 BP 124/71 10/09/18 16:48 Pulse Ox 100 10/09/18 16:48 Lower Extremity Course/Dx - Differential Dx/Diagnosis Provider Diagnosis: Paronychia of great toe, right Discharge - Sign-Out/Discharge Documenting (check all that apply): Patient Departure - D/C home All imaging exams completed and their final reports reviewed: No Studies - Discharge Plan Condition: Stable Disposition: HOME Prescriptions: Aluminum Sulf/Ca Acetate SEVERO* [[place] SEVERO*] 1 applic TOPICAL DAILY #1 severo Bacitracin OINTMENT* 1 applic TOPICAL TID #1 tube Clindamycin Cap(NF) [Clindamycin Cap 300 mg Cap(NF)] 300 mg PO TID #21 cap Patient Education Materials: Paronychia (ED) Referrals: [facility] [Outside] - 3 Days Bahman Arnold DPM [Doctor of Podiatric Medicine] - 3 Days Additional Instructions: 1-Please take full course of antibiotic to avoid resistance. Keep wound clean and dry with a sterile dressing. Apply bacitracin topical as directed 2- F/u wound check up in 2 days with your PCP or Podiarist Dr Arnold at the urgent care for removal of packing 3-. Take Ibuprofen PO q6-8hrs prn for pain or swelling. soak your toe in the [place] pkts and dey toe well and apply bacitrain ointment as directed. 4-If you develop fever or redness despite antibiotic please go to the ER immediately or return to the Urgent care. 5- Wound culture sent to lab, if any abnormal result you will receive a call from us. - Billing Disposition and Condition Condition: STABLE Disposition: Home
[2018-10-09] MEDS ORDERED: Lidocaine 1%* 5 ML VIAL INJ ONE (17:30)
[2018-10-09] MEDS ORDERED: Silver Nitrate/Potassium Nitr* 1 EA STICK TOPICAL ONE (17:30)
--- NOTE | 2018-10-12 15:11 | UC ---
- Progress Note Progress Note: Wound culture result presumed resistant to clindamycin, but pt was placed on bacitracin and on wound check 2 days later appeared to be healing well. Please forward culture results to his Industrial Safety And Health Technician. Please call pt and insure he has f/u with Industrial Safety And Health Technician and if symptoms are improving - continue clindamycin....if symptoms not improving - will change po anbx. Course/Dx - Diagnoses Provider Diagnoses: Paronychia of great toe, right Discharge - Sign-Out/Discharge Documenting (check all that apply): Post-Discharge Follow Up All imaging exams completed and their final reports reviewed: No Studies - Discharge Plan Condition: Stable Disposition: HOME Prescriptions: Aluminum Sulf/Ca Acetate SEVERO* [[place] SEVERO*] 1 applic TOPICAL DAILY #1 severo Bacitracin OINTMENT* 1 applic TOPICAL TID #1 tube Clindamycin Cap(NF) [Clindamycin Cap 300 mg Cap(NF)] 300 mg PO TID #21 cap Patient Education Materials: Paronychia (ED) Forms: *Work Release Referrals: [facility] [Outside] - 3 Days Bahman Arnold DPM [Doctor of Podiatric Medicine] - 3 Days Additional Instructions: 1-Please take full course of antibiotic to avoid resistance. Keep wound clean and dry with a sterile dressing. Apply bacitracin topical as directed 2- F/u wound check up in 2 days with your PCP or Podiarist Dr Arnold at the urgent care for removal of packing 3-. Take Ibuprofen PO q6-8hrs prn for pain or swelling. soak your toe in the domeboro pkts and dey toe well and apply bacitrain ointment as directed. 4-If you develop fever or redness despite antibiotic please go to the ER immediately or return to the Urgent care. 5- Wound culture sent to lab, if any abnormal result you will receive a call from us. - Billing Disposition and Condition Condition: STABLE Disposition: Home - Attestation Statements Provider Attestation: I reviewed the culture and sensitivity report , he is on clindamycin and as per report,there is still a possibility that the organism is sensitive to clindamycin , he is seeing his regional dedicated truck driver tomorrow for follow-up . I agree with plan -Mendy Mckeon MD
== END 2018-10-09 19:20 | disposition home or self-care (01) ==
LOC: UCEAST 16:32
DX: L03.031 Cellulitis of right toe (principal); B95.61 Methicillin susceptible Staphylococcus aureus infection as the cause of diseases classified elsewhere; Z16.29 Resistance to other single specified antibiotic; Z88.1 Allergy status to other antibiotic agents; Z88.0 Allergy status to penicillin; Z88.2 Allergy status to sulfonamides
CPT/HCPCS: 87070; 87077; 87186; 87205; 87640; 87641; 99213; A9270-GY; G0463

== ENCOUNTER 2018-10-11 20:00 | Emergency (ER) | payer BC ==
[2018-10-11 20:20] VITALS: BP 131/79
--- NOTE | 2018-10-11 20:31 | UC ---
HPI Wound/Suture Re-check - HPI Summary HPI Summary: i7d of a paronychia right great toe 2 days ago---here for re-check - History Of Current Complaint Chief Complaint: UCSkin Stated Complaint: TOE PAIN Time Seen by Provider: 10/11/18 20:19 Hx Obtained From: Patient Onset/Duration: Sudden Onset Pain Intensity: 1 Pain Scale Used: 0-10 Numeric Procedure Type: i&d of paronychia right great toe Surgery Date: 10/09/18 - Allergies/Home Medications Allergies/Adverse Reactions: Allergies Allergy/AdvReac Type Severity Reaction Status Date / Time cefaclor [From Ceclor] Allergy Severe Hives Verified 10/11/18 20:20 Penicillins Allergy Severe Hives Verified 10/11/18 20:20 Sulfa (Sulfonamide Allergy Severe Hives Verified 10/11/18 20:20 Antibiotics) sulfamethoxazole Allergy Severe Hives Verified 10/11/18 20:20 [From Bactrim] trimethoprim [From Bactrim] Allergy Severe Hives Verified 10/11/18 20:20 PMH/Surg Hx/FS Hx/Imm Hx Previously Healthy: No Cardiovascular History: Hypertension Respiratory History: Asthma - Surgical History Surgical History: Yes Surgery Procedure, Year, and Place: Middle finger left hand surgery;. colonoscopy-NO POLYPS;. wisdom teeth removed;. pre cancerous mole removal; - Family History Known Family History: Positive: Renal Disease Negative: Cardiac Disease, Hypertension - Social History Occupation: Employed Full-time Lives: Alone Alcohol Use: None Substance Use Type: None Smoking Status (MU): Never Smoked Tobacco Have You Smoked in the Last Year: No Review of Systems All Other Systems Reviewed And Are Negative: Yes Constitutional: Positive: Negative Skin: Positive: Negative Eyes: Positive: Negative ENT: Positive: Negative Respiratory: Positive: Negative Cardiovascular: Positive: Negative Gastrointestinal: Positive: Negative Genitourinary: Positive: Negative Motor: Positive: Negative Neurovascular: Positive: Negative Musculoskeletal: Positive: Negative Neurological: Positive: Negative Psychological: Positive: Negative Is Patient Immunocompromised?: No Physical Exam Triage Information Reviewed: Yes Appearance: Well-Appearing, No Pain Distress, Well-Nourished Vital Signs: Initial Vital Signs Temp 98.7 F 10/11/18 20:14 Pulse 78 10/11/18 20:14 Resp 20 10/11/18 20:14 BP 131/79 10/11/18 20:14 Pulse Ox 100 10/11/18 20:14 Vital Signs Reviewed: Yes Eye Exam: Normal Eyes: Positive: Conjunctiva Clear ENT Exam: Normal ENT: Positive: Normal ENT inspection, Hearing grossly normal, Pharynx normal. Negative: Trismus, Muffled voice, Hoarse voice Dental Exam: Normal Neck exam: Normal Neck: Positive: Supple, Nontender Respiratory Exam: Normal Respiratory: Positive: Chest non-tender, No respiratory distress, No accessory muscle use Cardiovascular Exam: Normal Cardiovascular: Positive: RRR, Pulses Normal, Brisk Capillary Refill Musculoskeletal Exam: Normal Musculoskeletal: Positive: Strength Intact, ROM Intact, No Edema Neurological Exam: Normal Neurological: Positive: Alert, Muscle Tone Normal Psychological Exam: Normal Skin: Positive: Other - no drainage , erythama right great toe Course/Dx - Course Course Of Treatment: warm water and soap soaks continue antibiotics follow with podiatry as planned - Diagnosis Provider Diagnosis: Paronychia of great toe of right foot, Healing wound Discharge - Sign-Out/Discharge Documenting (check all that apply): Patient Departure All imaging exams completed and their final reports reviewed: No Studies - Discharge Plan Condition: Stable Disposition: HOME Patient Education Materials: Paronychia (ED), Warm Compress or Soak (ED) Forms: *Work Release Referrals: No Primary Care Phys,NOPCP [Primary Care Provider] - Bahman Arnold DPM [Doctor of Podiatric Medicine] - (as planned) - Billing Disposition and Condition Condition: STABLE Disposition: Home
== END 2018-10-11 20:40 | disposition home or self-care (01) ==
LOC: UCEAST 20:00
DX: L03.031 Cellulitis of right toe (principal); I10 Essential (primary) hypertension; J45.909 Unspecified asthma, uncomplicated; Z88.0 Allergy status to penicillin; Z88.2 Allergy status to sulfonamides; Z88.1 Allergy status to other antibiotic agents
CPT/HCPCS: 99212; G0463

== ENCOUNTER 2019-03-03 17:44 | Emergency (ER) | payer BC ==
[2019-03-03 18:05] VITALS: BP 144/92
--- NOTE | 2019-03-03 18:20 | UC ---
Cardiac HPI - HPI Summary HPI Summary: 43-year-old male presents with complaints of one week history of intermittent episodes of feeling as if his heart is fluttering. States he has been having episodes every day that last for a few seconds and then stop. Reports having multiple episodes a day. States today had some dizziness. States he had a similar incident in 2008 or 2009 that was worked up including a stress test and Holter monitor which he states were negative. States this workup was done in [facility] and he does not remember who the physician was at the time. Reports he has been told he has a murmur in the past. Denies chest pain, shortness of breath, diaphoresis, nausea, or vomiting. - History of Current Complaint Chief Complaint: UCChestPain Stated Complaint: CHEST PAIN FLUTTER Time Seen by Provider: 03/03/19 17:47 Hx Obtained From: Patient Pain Intensity: 0 - Allergy/Home Medications Allergies/Adverse Reactions: Allergies Allergy/AdvReac Type Severity Reaction Status Date / Time cefaclor [From Ceclor] Allergy Severe Hives Verified 03/03/19 19:24 Penicillins Allergy Severe Hives Verified 03/03/19 19:24 Sulfa (Sulfonamide Allergy Severe Hives Verified 03/03/19 19:24 Antibiotics) sulfamethoxazole Allergy Severe Hives Verified 03/03/19 19:24 [From Bactrim] trimethoprim [From Bactrim] Allergy Severe Hives Verified 03/03/19 19:24 PMH/Surg Hx/FS Hx/Imm Hx Cardiovascular History: Hypertension Psychological History: Anxiety - Surgical History Surgical History: Yes Surgery Procedure, Year, and Place: Middle finger left hand surgery;. colonoscopy-NO POLYPS;. wisdom teeth removed;. pre cancerous mole removal; - Family History Known Family History: Positive: Hypertension - Mother, Renal Disease Negative: Cardiac Disease - Social History Occupation: Employed Full-time Lives: Alone Alcohol Use: None Substance Use Type: None Smoking Status (MU): Never Smoked Tobacco Have You Smoked in the Last Year: No Review of Systems All Other Systems Reviewed And Are Negative: Yes Constitutional: Negative: Fever, Chills Respiratory: Negative: Shortness Of Breath, Cough Cardiovascular: Positive: Palpitations. Negative: Chest Pain Gastrointestinal: Negative: Abdominal Pain, Vomiting, Nausea Genitourinary: Positive: Negative Musculoskeletal: Positive: Negative Neurological: Positive: Negative Is Patient Immunocompromised?: No Physical Exam - Summary Physical Exam Summary: GENERAL APPEARANCE: Well developed, well nourished, alert and cooperative, and appears to be in no acute distress. CARDIAC: Normal S1 and S2. No S3, S4 or murmurs. Rhythm is regular. There is no peripheral edema, cyanosis or pallor. Extremities are warm and well perfused. Capillary refill is less than 2 seconds. Peripheral pulses intact. LUNGS: Clear to auscultation without rales, rhonchi, wheezing or diminished breath sounds. ABDOMEN: Positive bowel sounds. Soft, nondistended, nontender. No guarding or rebound. No masses or hepatosplenomegally. MUSKULOSKELETAL: ROM intact to all extremities. No joint erythema or tenderness. Normal muscular development. Normal gait. SKIN: Skin normal color, texture and turgor with no lesions or eruptions. Triage Information Reviewed: Yes Vital Signs: Initial Vital Signs Temp 99.1 F 03/03/19 18:02 Pulse 71 03/03/19 18:02 Resp 18 03/03/19 18:02 BP 144/92 03/03/19 18:02 Pulse Ox 100 03/03/19 18:02 Vital Signs Reviewed: Yes Diagnostics - EKG Cardiac Rate: NL - Rate 65 Cardiac Rhythm: Sinus: Normal Ectopy: None ST Segment: Normal Summary of EKG Findings: NSR. Rate 65. No BERTRAND or ectopy. P-wave and T-wave inversion V1 likely normal variant. No previous EKG for comparison. - Assessment/Plan Course Of Treatment: 43-year-old male presents with complaints of one week history of intermittent episodes of feeling as if his heart is fluttering. States he has been having episodes every day that last for a few seconds and then stop. Reports having multiple episodes a day. States today had some dizziness. States he had a similar incident in 2008 or 2009 that was worked up including a stress test and Holter monitor which he states were negative. States this workup was done in [facility] and he does not remember who the physician was at the time. Reports he has been told he has a murmur in the past. Denies chest pain, shortness of breath, diaphoresis, nausea, or vomiting. Afebrile. Hypertensive otherwise vital signs stable. Twelve-lead EKG showed normal sinus rhythm at a rate of [address] elevation. There was P wave and T-wave inversion in V1 likely a normal variant however there was no previous EKG for comparison. Patient's exam was overall unremarkable. Discussed findings with the patient and have recommended that he be further evaluated in the emergency room at this time. Patient is agreeable to this plan however declines transport via EMS electing to go by private vehicle driving himself. The patient is clinically sober, free from distracting injury, appears to have insight and reasoning and in my judgment has capacity to make decisions. I have told the patient if he chooses not to transport via EMS he could have worsening of symptoms, become critically ill, suffer diability, and even possibly . Verbalizes understanding and still chooses to transport via private vehicle. - Differential Diagnoses - Chest Pain Differential Diagnosis/HQI/PQRI: Acute IL, ACS, Other: - Afib/Aflutter, PVC, PAC , Vtach, SVT - Clinical Impression Provider Diagnosis: Palpitations Discharge ED - Sign-Out/Discharge Documenting (check all that apply): Patient Departure All imaging exams completed and their final reports reviewed: No Studies - Discharge Plan Condition: Stable Disposition: HOME-RECOMMEND TO ED Patient Education Materials: Heart Palpitations (ED) Referrals: No Primary Care Phys,NOPCP [Primary Care Provider] - Additional Instructions: Your EKG in the clinic today did not show any acute problems that would account for your symptoms however I cannot rule out any serious causes at this time. I am recommending that you go to the emergency room for further evaluation. Go directly to the emergency room from here. - Billing Disposition and Condition Condition: STABLE Disposition: Home-Recommend to ED - Attestation Statements Provider Attestation: Per institutional requirements, I have reviewed the chart, however, I was not consulted specifically or made aware of this patient by the midlevel provider. I did not personally evaluate, interact with , or disposition this patient.
== END 2019-03-03 18:25 | disposition home health service (06) ==
LOC: UCEAST 17:44
DX: R00.2 Palpitations (principal); I10 Essential (primary) hypertension
CPT/HCPCS: 93005; 99212; G0463

== ENCOUNTER 2019-03-03 19:13 | Emergency (ER) | payer BC ==
[2019-03-03] MEDS ORDERED: Aspirin 81 mg CHEW TAB* 81 MG TAB.CHEW PO ONE (19:25)
--- NOTE | 2019-03-03 19:58 | ED ---
HPI Cardiac - HPI Summary HPI Summary: This patient is a 43 year old M presenting to [facility] with a chief complaint of intermittent heart palpation lasting about 1 minute since last week. Pt felt the palpations again this morning and went to the walk in clinic. Nothing was found but pt was told to come into the ED for further testing. Pt report it feels like a flutter. Pt was Dx 10 years ago with a murmur. Pt had similar symptoms lasting 3 days in beginning of November. Symptoms aggravated by stress. Patient reports diaphoresis, nml BM. Patient denies N/V/D, fever, chills, change in weight, change in hair thinning, CP. Pt has PMHx of polycystic kidney disease. Medications reviewed. Allergies noted - History of Current Complaint Chief Complaint: EDDysrhythmPalp Stated Complaint: FLUTTER IN MY HEART PER PT Time Seen by Provider: 03/03/19 19:48 Hx Obtained From: Patient Onset/Duration: Started Days Ago Timing: Intermittent Current Severity: None Pain Intensity: 0 Pain Scale Used: 0-10 Numeric Chest Pain Radiates: No Character: Fluttering Aggravating Factor(s): Other: - Stress Alleviating Factor(s): Nothing Associated Signs and Symptoms: Negative: Chest Pain, Nausea, Vomiting, Other: - neg - change in weight, change in hair thinning - Allergy/Home Medications Allergies/Adverse Reactions: Allergies Allergy/AdvReac Type Severity Reaction Status Date / Time cefaclor [From Ceclor] Allergy Severe Hives Verified 03/03/19 19:24 Penicillins Allergy Severe Hives Verified 03/03/19 19:24 Sulfa (Sulfonamide Allergy Severe Hives Verified 03/03/19 19:24 Antibiotics) sulfamethoxazole Allergy Severe Hives Verified 03/03/19 19:24 [From Bactrim] trimethoprim [From Bactrim] Allergy Severe Hives Verified 03/03/19 19:24 Home Medications: Home Medications Budesonide NASAL (NF) [Rhinocort Aqua (NF)] 2 spray BOTH NARES BID 03/03/19 [ History Confirmed 03/03/19] Calcium Cit/Mag/D3/Zn/Can Inspector/Royal [Calcium Citrate Plus Tablet] 1 tab PO DAILY 09/16 [History Confirmed 03/03/19] Ketoconazole 2 % CREAM (NF) [Nizoral 2% CREAM (NF)] 1 applic TOPICAL BID PRN 09/16 [History Confirmed 03/03/19] Lisinopril TAB* [Prinivil TAB*] 5 mg PO DAILY 03/03/19 [History Confirmed ] Montelukast Sodium TAB* [Singulair TAB*] 10 mg PO DAILY 03/03/19 [History Confirmed 03/03/19] Refugio 300 mg PO DAILY PRN 03/03/19 [History Confirmed 03/03/19] [place]-3/Dha/Epa/Fish Oil [Fish Oil 1,000 mg Softgel] 1,000 mg PO DAILY 03/03/19 [History Confirmed 03/03/19] Saline NASAL SPRAY 0.65%* [Sodium Chloride 0.65% Nasal [place]*] 2 spray BOTH NARES .BID-TID PRN 03/03/19 [History Confirmed 03/03/19] Tacrolimus 0.1% OINT (NF) 1 applic TOPICAL DAILY PRN 03/03/19 [History Confirmed 03/03/19] guaiFENesin ER TAB [Mucinex*] 600 mg PO BID PRN 03/03/19 [History Confirmed 09/16] PMH/Surg Hx/FS Hx/Imm Hx Endocrine/Hematology History: Denies: Hx Diabetes, Hx Thyroid Disease Cardiovascular History: Reports: Hx Hypertension Denies: Hx Pacemaker/ICD Respiratory History: Denies: Hx Asthma, Hx Chronic Obstructive Pulmonary Disease (COPD) GI History: Denies: Hx Ulcer History: Reports: Hx Renal Disease - Polycystic KIDNEY DISEASE Sensory History: Denies: Hx Hearing Aid Psychiatric History: Denies: Hx Panic Disorder - Surgical History Surgery Procedure, Year, and Place: Middle finger left hand surgery;. colonoscopy-NO POLYPS;. wisdom teeth removed;. pre cancerous mole removal; Infectious Disease History: No Infectious Disease History: Denies: Hx Clostridium Difficile, Hx Hepatitis, Hx Human Immunodeficiency Virus (HIV), Hx of Known/Suspected MRSA, Hx Shingles, Hx Tuberculosis, Hx Known/ Suspected VRE, Hx Known/Suspected VRSA, History Other Infectious Disease, Traveled Outside the [place] in Last 30 Days - Family History Known Family History: Positive: Hypertension - Mother, Renal Disease Negative: Cardiac Disease - Social History Occupation: Employed Full-time Alcohol Use: None Hx Substance Use: Yes - Jonah Substance Use Type: Reports: None Smoking Status (MU): Never Smoked Tobacco Have You Smoked in the Last Year: No Review of Systems Positive: Skin Diaphoresis. Negative: Chills Positive: Palpitations. Negative: Chest Pain Negative: Vomiting, Diarrhea, Nausea All Other Systems Reviewed And Are Negative: Yes Physical Exam - Summary Physical Exam Summary: Constitutional: Well-developed, Well-nourished, Alert. (-) Distressed Skin: Warm, Dry HENT: Normocephalic; Atraumatic Eyes: Conjunctiva normal Neck: Musculoskeletal ROM normal neck. (-) JVD, (-) Stridor, (-) Tracheal deviation Cardio: Rhythm regular, rate normal, Heart sounds normal; Intact distal pulses; The pedal pulses are 2+ and symmetric. Radial pulses are 2+ and symmetric. (-) Murmur Pulmonary/Chest wall: Effort normal. (-) Respiratory distress, (-) Wheezes, (-) Rales Abd: Soft, (-) tenderness, (-) Distension, (-) Guarding, (-) Rebound Musculoskeletal: (-) Edema Lymph: (-) Cervical adenopathy Neuro: Alert, Oriented x3 Psych: Appears anxious Triage Information Reviewed: Yes Vital Signs On Initial Exam: Initial Vitals Temp Pulse Resp BP Pulse Ox 98.0 F 69 16 148/93 99 03/03/19 19:20 03/03/19 19:20 03/03/19 19:20 03/03/19 19:20 03/03/19 19:20 Vital Signs Reviewed: Yes Diagnostics - Vital Signs Vital Signs Temp Pulse Resp BP Pulse Ox 03/03/19 19:20 98.0 F 69 16 148/93 99 - Laboratory Result Diagrams: 03/03/19 20:31 03/03/19 20:31 Lab Statement: Any lab studies that have been ordered have been reviewed, and results considered in the medical decision making process. - Radiology CXR Radiology Interpretation Completed By: ED Physician Summary of Radiographic Findings: CXR reveals, no acute processes. Pending official radiology report. - EKG 1914 Cardiac Rate: NL EKG Rhythm: Sinus Rhythm Summary of EKG Findings: EKG at 1914 reveals sinus rhythm 73 bpm. No STEMI. Re-Evaluation - Re-Evaluation First Eval Re-Evaluation Time: 21:51 Comment: Diascussed plan to discharge with pt. Disposition - Course Course Of Treatment: Patient is here with. Palpitations over the past week. Patient had some episodes in the past with a holter monitor that did not demonstrate any abnormality. Patient was overall pain here with no evidence of arrhythmia on his EKG. Patient had a CBC, CPK, TSH checked which are all grossly unremarkable. Patient has Gilbert syndrome and always has elevated T bili. Patient was offered anxiety medicine here but declined. Patient was referred to cardiology for further workup. - Diagnoses Provider Diagnoses: Palpitations Discharge ED - Sign-Out/Discharge Documenting (check all that apply): Patient Departure - Discharge Patient Received Moderate/Deep Sedation with Procedure: No - Discharge Plan Condition: Stable Disposition: HOME Patient Education Materials: Heart Palpitations (ED) Referrals: [facility] [Outside] Castillo Hernandez MD [Medical Doctor] - Additional Instructions: Follow up with cardiology. Get bilirubin rechecked in 1 week. PLEASE RETURN TO EMERGENCY DEPARTMENT FOR ANY NEW OR WORSENING SYMPTOMS. - Billing Disposition and Condition Condition: STABLE Disposition: Home - Attestation Statements Document Initiated by Deliaibe: Yes Documenting Scribe: Deanne Cunha Provider For Whom Harry is Documenting (Include Credential): Lamont Rajput MD Scribe Attestation: Deanne Ambrocio scribed for Lamont Rajput MD on 03/04/19 at 1235. Scribe Documentation Reviewed: Yes Provider Attestation: The documentation as recorded by the Deanne kennedy accurately reflects the service I personally performed and the decisions made by , Lamont Rajput MD Status of Scribe Document: Viewed
[2019-03-03 20:38] LABS: ABS Eosinophils 0.1 10^3/ul (0-0.6); ABS Lymphocytes 1.1 10^3/ul (1.0-4.8); ABS Monocytes 0.4 10^3/ul (0-0.8); ABS Neutrophils 4.1 10^3/ul (1.5-7.7); Eosinophil % 2.3 %; Hematocrit 41 % (42-52); Hemoglobin 14.1 g/dL (14.0-18.0); Lymphocyte % 18.5 %; Mean Corpuscular HGB Conc 35 g/dL (31-36); Mean Corpuscular Hemoglobin 31 pg (27-31); Mean Corpuscular Volume 89 fL (80-94); Mean Platelet Volume 8.3 fL (7.4-10.4); Platelet Count 193 10^3/uL (150-450); Red Blood Count 4.56 10^6 /uL (4.18-5.48); Red Cell Distribution Width 12 % (10-15); White Blood Count 5.7 10^3/uL (3.5-10.8)
[2019-03-03 20:55] LABS: ALT 18 U/L (7-52); AST 17 U/L (13-39); Albumin 4.3 g/dL (3.2-5.2); Albumin/Globulin Ratio 2.3 (1-3); Alkaline Phosphatase 45 U/L (34-104); BUN/Creatinine Ratio 13.6 (8-20); Blood Urea Nitrogen 15 mg/dL (6-24); CO2 Carbon Dioxide 33 mmol/L (22-32); Calcium 8.9 mg/dL (8.6-10.3); Chloride 102 mmol/L (101-111); EGFR African American 88.4 (>60); EGFR Non-African American 73.1 (>60); Globulin 1.9 g/dL (2-4); Glucose 90 mg/dL (70-100); Potassium 3.8 mmol/L (3.5-5.0); Sodium 135 mmol/L (135-145); Total Protein 6.2 g/dL (6.4-8.9)
[2019-03-03 21:45] LABS: TSH (Thyroid Stimulating Horm) 2.27 mcIU/mL (0.34-5.60)
[2019-03-03 22:26] VITALS: BP 122/69
== END 2019-03-03 22:25 | disposition home or self-care (01) ==
LOC: ED 19:13
DX: R00.2 Palpitations (principal); Z88.0 Allergy status to penicillin; Z88.2 Allergy status to sulfonamides; Z79.899 Other long term (current) drug therapy; I10 Essential (primary) hypertension; Q61.2 Polycystic kidney, adult type
CPT/HCPCS: 36415; 71045; 80053; 83735; 84443; 84484; 85025; 93005; 99282